=== PATIENT | male | born 1990 | race Caucasian/White ===

== ENCOUNTER 2018-05-04 16:40 | Emergency (ER) | payer OTHER ==
[~2018-05-04] VITALS: Ht 182.9 cm; Wt 127.0 kg
[~2018-05-04 16:40] MED LIST: CYCLOBENZAPRINE10 MG PO; NAPROSYN500 MG PO; NOHOMEMEDICATIONS; ULTRAM 50MG TAB50 MG PO
[2018-05-04 18:03] VITALS: BP 144/89
== END 2018-05-04 18:04 | disposition home or self-care (01) ==
LOC: ER 16:40
DX: H66.93 Otitis media, unspecified, bilateral (principal); J06.9 Acute upper respiratory infection, unspecified; F17.210 Nicotine dependence, cigarettes, uncomplicated